=== PATIENT | male | born 1945 | race Caucasian/White ===

== ENCOUNTER 2017-09-23 09:20 | Emergency (ER) | payer OTHER ==
[2017-09-23 09:34] VITALS: BP 139/88; PULSE 80; TEMP 97.6; BMI 29.3
--- NOTE | 2017-09-23 10:10 | PDOC ---
History of Present Illness - General Chief Complaint: Pain Stated Complaint: LT SHOULDER PAIN Time Seen by Provider: 09/23/17 09:44 History Source: Patient Exam Limitations: No Limitations - History of Present Illness Initial Comments: 09/23/17 10:04 This 72-year-old male with significant medical history of MIs with stents 3 who presents emergency department with 2 months of intermittent left shoulder pain which has been constant and increasing in pain for the past 10 days. Patient states the pain started at 2/10 pain intensity and over the past 10 days has increased to currently 10/10. Patient was seen and evaluated by his independent trader 2 weeks ago and was scheduled for nuclear stress test on 09/25. Patient reports his pain is isolated to the lateral and anterior aspects of the shoulder and worsens with movement. He denies any trauma and states the pain initially started when he was abducting his shoulder with an empty hand. He denies chest pain, shortness of breath, jaw pain, headaches, dizziness, nausea, vomiting, abdominal pain. Past History - Past Medical History Allergies/Adverse Reactions: Allergies Allergy/AdvReac Type Severity Reaction Status Date / Time No Known Allergies Allergy Verified 09/23/17 09:28 Home Medications: Ambulatory Orders Oxycodone HCl/Acetaminophen [Percocet 5-325 mg Tablet] 1 tab PO Q6H PRN #6 tablet MDD 4 09/23/17 Cardiac Disorders: Yes (cad) COPD: No - Surgical History Cardiac Surgery: Yes (card setnts) - Suicide/Smoking/Psychosocial Hx Smoking History: Former smoker Have you smoked in the past 12 months: No Information on smoking cessation initiated: No Hx Alcohol Use: No Drug/Substance Use Hx: No Substance Use Type: None Review of Systems - Review of Systems Able to Perform ROS?: Yes Is the patient limited Estonian proficient: No Constitutional: No: Symptoms Reported HEENTM: No: Symptoms Reported Respiratory: No: Symptoms reported Cardiac (ROS): No: Symptoms Reported ABD/GI: No: Symptoms Reported : No: Symptoms Reported Musculoskeletal: Yes: See HPI Integumentary: No: Symptoms Reported Neurological: No: Symptoms reported *Physical Exam - Vital Signs Last Vital Signs Temp Pulse Resp BP Pulse Ox 97.6 F 80 18 139/88 100 09/23/17 09:28 09/23/17 09:28 09/23/17 09:28 09/23/17 09:28 09/23/17 09:28 - Physical Exam General Appearance: Yes: Appropriately Dressed. No: Apparent Distress HEENT: positive: Normal ENT Inspection Neck: positive: Trachea midline, Supple Respiratory/Chest: positive: Lungs Clear, Normal Breath Sounds. negative: Respiratory Distress, Accessory Muscle Use Cardiovascular: positive: Regular Rhythm, Regular Rate, S1, S2. negative: Edema , Murmur Gastrointestinal/Abdominal: positive: Normal Bowel Sounds, Soft. negative: Tender Musculoskeletal: positive: Normal Inspection. negative: CVA Tenderness Extremity: positive: Normal Capillary Refill, Normal Inspection, Other (Radial and ulnar pulses 2+ bilaterally). negative: Normal Range of Motion (Unable to abduct left shoulder to 90.) Integumentary: positive: Normal Color, Dry, Warm Neurologic: positive: Alert, Normal Response Heart Score/ECG Review - History History: Slightly suspicious - Electrocardiogram EKG: Normal - Age Age: >/= 65 - Risk Factors Risk Factors Heart Score: Yes Hx Hypertension, Yes Positive family hx of cardiac disease Based on the list above the patient has:: 1-2 risk factors - Troponin Troponin: </= normal limit - Score Heart Score - Total: 3 - ECG Intrepretation Rhythm: Regular Rhythm ED Treatment Course - LABORATORY CBC & Chemistry Diagram: 09/23/17 10:00 09/23/17 10:00 - RADIOLOGY Radiology Studies Ordered: Category Date Time Status CHEST PA & LAT [RAD] Stat Radiology 09/23/17 10:02 Ordered Medical Decision Making - Medical Decision Making 09/23/17 10:08 A/P: 72-year-old male with history of NV with stent 3 with left shoulder pain for the past 2 months Decreased range of motion with abduction-patient unable to reach 90 No subcutaneous emphysema noted No palpable deformity noted Dispensary Technician strength 5/5 bilaterally 2+ radial and ulnar pulses bilaterally Exam is consistent with musculoskeletal pain but given patient's history and currently scheduled for stress test in 2 days I will collect labs, chest x-ray, EKG 09/23/17 10:11 EKG is interpreted by Dr. Mcknight and reviewed by me-sinus rhythm with rate of 78. Normal intervals noted 09/23/17 11:04 X-rays read by me: Angles clear. Cardiac silhouette is within normal limits. No focal infiltrates or consolidations noted. Visualized osseous structures intact. Laboratory testing is unremarkable with a troponin less than 0.02. I discussed the physical exam findings, ancillary test results and final diagnoses with the patient. I answered all of the patient's questions. The patient was satisfied with the care received and felt comfortable with the discharge plan and treatment plan. The patient will call his doctor within 96 hours to arrange follow-up and will return to the Emergency Department with any new, persistent or worsening symptoms. *DC/Admit/Observation/Transfer Diagnosis at time of Disposition: Left shoulder pain Qualifiers: Chronicity: acute Qualified Code(s): M25.512 - Pain in left shoulder - Discharge Dispostion Disposition: HOME Condition at time of disposition: Stable Decision to Admit order: No - Prescriptions Prescriptions: Oxycodone HCl/Acetaminophen [Percocet 5-325 mg Tablet] 1 tab PO Q6H PRN #6 tablet MDD 4 PRN Reason: Severe Pain - Referrals Referrals: Karissa Haque MD [Primary Care Provider] - - Patient Instructions Additional Instructions: Take Tylenol or Motrin as needed for pain. Follow manufacturers instructions for appropriate dosage. Take percocet 1 tablet every 6 hours as needed for severe pain. Keep appointment with your orthopedist as scheduled tomorrow. Apply ice for 20 minutes and removed for at least 20 minutes before reapplying the ice. Return to emergency department for discoloration of the foot, numbness or tingling to the foot, worsening pain, or any other concerns. Thank you very much for choosing us to provide your emergent healthcare needs. - Post Discharge Activity
[2017-09-23 10:19] LABS: BASO % 0.7 % (0-2.0); HEMOGLOBIN 14.1 GM/dL (11.7-16.9); LYMPH % 27.5 % (8-40); MCH 28.9 pg (25.7-33.7); MCHC 33.6 g/dl (32.0-35.9); MEAN PLT VOLUME 8.9 fl (7.5-11.1); MONO % 7.1 % (3.8-10.2); NEUT % 61.7 % (42.8-82.8); PLATELET COUNT 222 K/MM3 (134-434); RBC 4.89 M/mm3 (4.00-5.60); RDW 15.5 % (11.9-15.9); WHITE BLOOD COUNT 7.2 K/mm3 (4.0-10.0)
[2017-09-23 10:32] LABS: INR 0.98 (0.82-1.09); PROTHROMBIN TIME (PATIENT) 11.1 SEC (9.7-13.0)
[2017-09-23 10:42] LABS: ALBUMIN 3.7 g/dl (3.4-5.0); ANION GAP 5 (8-16); BILIRUBIN,TOTAL 0.5 mg/dL (0.2-1.0); BLOOD UREA NITROGEN 12 mg/dL (7-18); CALCIUM 8.3 mg/dL (8.5-10.1); CHLORIDE 103 mmol/L (98-107); CO2 29 mmol/L (21-32); GLUCOSE,RANDOM 81 mg/dL (74-106); POTASSIUM 4.1 mmol/L (3.5-5.1); SGOT/AST 10 U/L (15-37); SGPT/ALT 21 U/L (12-78); SODIUM 137 mmol/L (136-145); TOT PROT 7.4 g/dl (6.4-8.2)
[2017-09-23 10:45] LABS: ALK PHOS 71 U/L (45-117)
--- NOTE | 2017-09-24 09:39 | EKG ---
Test Reason : Blood Pressure : / mmHG Vent. Rate : 078 BPM Atrial Rate : 078 BPM P-R Int : 150 ms QRS Dur : 086 ms QT Int : 368 ms P-R-T Axes : 005 -05 040 degrees QTc Int : 419 ms NORMAL SINUS RHYTHM POSSIBLE LATERAL INFARCT , AGE UNDETERMINED POSSIBLE INFERIOR INFARCT , AGE UNDETERMINED ABNORMAL ECG NO PREVIOUS ECGS AVAILABLE Confirmed by ALMAS DELUCA MD ([id number]) on 09/24/2017 9:39:11 AM Referred By: Confirmed By:ALMAS DELUCA MD
== END 2017-09-23 11:25 | disposition home or self-care (01) ==
LOC: JERFT 09:20
DX: M25.512 Pain in left shoulder (principal); I25.10 Atherosclerotic heart disease of native coronary artery without angina pectoris; I10 Essential (primary) hypertension; Z95.5 Presence of coronary angioplasty implant and graft; I25.2 Old myocardial infarction; Z87.891 Personal history of nicotine dependence
CPT/HCPCS: 36415; 71046-TC-FY; 80053; 82550; 83735; 84484; 85025; 85610; 93005; 93010; 99281-25

== ENCOUNTER 2020-09-05 12:55 | Emergency (ER) | payer OTHER ==
[2020-09-05] MEDS ORDERED: ACETAMINOPHEN 1000 MG/100 ML VIAL (NON FORMULARY) IVPB ONE (13:14)
[2020-09-05] MEDS ORDERED: SODIUM CHLORIDE 1,000 ML IV STA (13:14)
[2020-09-05] MEDS ORDERED: LIDOCAINE 5% TOPICAL PATCH TP ONE (13:17)
[2020-09-05 13:35] VITALS: BP 153/92; PULSE 80; TEMP 98; BMI 29.3
[2020-09-05 14:05] LABS: BASO % 2.7 % (0-2.0); EOS % 1.2 % (0-4.5); HEMATOCRIT 41.7 % (35.4-49); HEMOGLOBIN 13.7 GM/dl (11.7-16.9); LYMPH % 15.1 % (8-40); MCH 26.7 pg (25.7-33.7); MCHC 32.8 g/dl (32.0-35.9); MEAN CELL VOLUME 81.3 fl (80-96); MEAN PLT VOLUME 10.4 fl (7.5-11.1); MONO % 4.8 % (3.8-10.2); NEUT % 76.2 % (42.8-82.8); PLATELET COUNT 241 K/MM3 (134-434); RBC 5.13 M/mm3 (4.00-5.60); RDW 15.9 % (11.9-15.9); WHITE BLOOD COUNT 8.5 K/mm3 (4.0-10.8)
[2020-09-05] MEDS ORDERED: LIDOCAINE 5% TOPICAL PATCH ONE (14:08)
[2020-09-05 14:46] LABS: ALBUMIN 3.8 g/dl (3.4-5.0); BILIRUBIN,TOTAL 0.6 mg/dl (0.2-1); CALCIUM 8.8 mg/dl (8.5-10)
[2020-09-05] MEDS ORDERED: METHOCARBAMOL 500 MG TABLET PO ONE (14:59)
[2020-09-05] MEDS ORDERED: METHOCARBAMOL 500 MG TABLET ONE (15:05)
[2020-09-05] MEDS ORDERED: LIDOCAINE PATCH REMOVAL MC SCH (22:00)
== END 2020-09-05 15:25 | disposition home or self-care (01) ==
LOC: FER 12:55 → MERGE 12:55 → FER 15:25
PROC: 3E0333Z Introduction of Anti-inflammatory into Peripheral Vein, Percutaneous Approach (ICD-10-PCS; principal; 2020-09-05)
PROC: 3E0337Z Introduction of Electrolytic and Water Balance Substance into Peripheral Vein, Percutaneous Approach (ICD-10-PCS; 2020-09-05)
DX: M54.5 Low back pain (principal)
CPT/HCPCS: 36415; 74176-TC; 80053; 81003; 85025; 87086; 99285-25; J0131

== ENCOUNTER 2023-03-07 09:16 | Day surgery (SDC) | payer OTHER ==
[~2023-03-07 09:16] MED LIST: IRON SUCROSE INJECTION 200 MG in SODIUM CHLORIDE 100 ML IVPB ONE
[2023-03-07 11:39] VITALS: BP 151/84; PULSE 63; RESP 18; TEMP 97.6
== END 2023-03-07 10:30 | disposition home or self-care (01) ==
LOC: JONCNONCHE 09:16 → J7W 09:17 → JONCNONCHE 10:30
PROVIDERS: ATTEND Internal Medicine Hematology & Oncology
PROC: 3E033GC Introduction of Other Therapeutic Substance into Peripheral Vein, Percutaneous Approach (ICD-10-PCS; principal; 2023-03-07)
DX: D50.9 Iron deficiency anemia, unspecified (principal)
CPT/HCPCS: 96365; J1756

== ENCOUNTER 2023-03-14 12:20 | Day surgery (SDC) | payer OTHER ==
[~2023-03-14 12:20] MED LIST changes: +IRON SUCROSE COMPLEX 200 MG in SODIUM CHLORIDE 100 ML IVPB ONE; -IRON SUCROSE INJECTION 200 MG in SODIUM CHLORIDE 100 ML IVPB ONE
[2023-03-14 13:02] VITALS: RESP 18; TEMP 98.3
[2023-03-14 13:18] VITALS: BP 114/64; PULSE 71
== END 2023-03-14 13:40 | disposition home or self-care (01) ==
LOC: J7W 12:20 → JONCNONCHE 12:20
PROVIDERS: ATTEND Internal Medicine Hematology & Oncology
PROC: 3E033GC Introduction of Other Therapeutic Substance into Peripheral Vein, Percutaneous Approach (ICD-10-PCS; principal; 2023-03-14)
DX: D50.9 Iron deficiency anemia, unspecified (principal)
CPT/HCPCS: 96365

== ENCOUNTER 2024-09-14 11:35 | Day surgery (SDC) | payer OTHER ==
[2024-09-14] MEDS: IRON SUCROSE INJECTION 200 MG in SODIUM CHLORIDE 100 ML IVPB ONE (11:53)
[2024-09-14 12:04] VITALS: RESP 20; TEMP 97.2
[2024-09-14 12:33] VITALS: BP 124/79; PULSE 66
== END 2024-09-14 13:00 | disposition home or self-care (01) ==
LOC: JONCNONCHE 11:35 → J7W 11:35 → JONCNONCHE 13:00
PROVIDERS: ATTEND Internal Medicine Hematology & Oncology
PROC: 3E033GC Introduction of Other Therapeutic Substance into Peripheral Vein, Percutaneous Approach (ICD-10-PCS; principal; 2024-09-14)
DX: D50.9 Iron deficiency anemia, unspecified (principal)
CPT/HCPCS: 96365; J1756